=== PATIENT | male | born 1990 | race African-American/Black ===

== ENCOUNTER 2021-11-07 08:17 | Emergency (ER) | payer BC, SELFPAY ==
[2021-11-07] MEDS ORDERED: Ketorolac Tromethamine 30 MG/ML VIAL ONE (08:51)
== END 2021-11-07 09:08 | disposition home or self-care (01) ==
LOC: CSHERS 08:17
DX: U07.1 COVID-19 (principal); J02.9 Acute pharyngitis, unspecified
CPT/HCPCS: 93005; 93010; 96372; J1885; U0003; U0005

== ENCOUNTER 2021-12-12 14:36 | Emergency (ER) | payer SELFPAY | END 2021-12-12 14:59 | disposition home or self-care (01) | LOC: CSHERS 14:36 | DX: Z20.2 Contact with and (suspected) exposure to infections with a predominantly sexual mode of transmission (principal) | CPT/HCPCS: 99281 ==

== ENCOUNTER 2022-03-23 15:16 | Emergency (ER) | payer SELFPAY | END 2022-03-23 16:09 | disposition home or self-care (01) | LOC: CSHERS 15:16 | DX: L73.9 Follicular disorder, unspecified (principal) | CPT/HCPCS: 10060 ==

== ENCOUNTER 2022-04-26 13:18 | Emergency (ER) | payer SELFPAY ==
[2022-04-26] MEDS ORDERED: Ketorolac Tromethamine 30 MG/ML VIAL ONE (15:05)
== END 2022-04-26 15:37 | disposition home or self-care (01) ==
LOC: CSHERS 13:18
DX: M62.830 Muscle spasm of back (principal)
CPT/HCPCS: 96372; 99283; J1885